=== PATIENT | female | born 1945 | race Caucasian/White ===

== ENCOUNTER 2019-03-04 08:39 | Day surgery (SDC) | payer MEDICARE ==
[~2019-03-04] VITALS: Ht 160 cm; Wt 63.0 kg
--- NOTE | ~2019-03-04 | OP ---
PATIENT NAME: RASHAUN GARCIA MEDICAL RECORD: [id number] :45 LOCATION:[facility] ADMISSION DATE: SURGEON: MERRICK GARCIA MD DATE OF OPERATION: 03/04/2019 PREOPERATIVE DIAGNOSIS: Acute appendicitis. POSTOPERATIVE DIAGNOSIS: Acute appendicitis. Pathology pending. PROCEDURE: Laparoscopic appendectomy. SURGEON: Merrick Garcia MD [employer] FORMER: None. BLOOD LOSS: Minimal. ANESTHESIA: General. COMPLICATIONS: None. The risks, possible complications, and alternatives to the procedure were explained to the patient. She elects to proceed. The patient had been having no right lower quadrant abdominal pain. She does have a thickened appendix on CT scan. She also has colonoscopic images that reveal some what appears to be a colitis around the appendiceal orifice. We specifically discussed the possibility that the appendix would be normal and in that event, I would still remove the normal appendix in order to avoid diagnostic confusion in the future should the patient develop abdominal pain. OPERATIVE COURSE: The patient was conveyed to the operating room electively on 03/04/2019. General anesthesia was induced by the anesthesia staff. The patient was positioned supine. The abdomen was sterilely prepped and draped. A small skin incision was accomplished in the left upper quadrant. A Veress needle was inserted through the skin incision into the peritoneal cavity. CO2 insufflation was begun. Once a sufficient pneumoperitoneum had been achieved, a 5-mm trocar was inserted through an incision in the left upper quadrant. Under direct internal vision utilizing television camera, a 5-mm trocar was inserted in the left lower quadrant. A 12-mm trocar was inserted through an incision at the umbilicus. During insertion of the Veress needle and all trocars, there appeared to have been no injury to the bowels, any intraperitoneal or retroperitoneal structures. A right-sided pelvic hernia was noted. There is no evidence of incarceration. The hernial had a wide mouth. I do not believe that is ever going to cause her any symptoms. Right inguinal mesh was identified. It appeared to be nicely placed without any recurrence of a hernia. The appendix was identified. It was grasped and retracted anteriorly. A window was created in the mesoappendix. I took down the mesoappendix with the laparoscopic EnSeal device. I then stapled across the tip of the cecum with an OPERATIVE REPORT [id number] RASHAUN GARCIA Hallie Endo-DANETTE type stapler utilizing blue loads. The appendix was placed within a bag retrieval device and was withdrawn through the umbilical fascia defect. The 12-mm trocar was placed and the abdomen reinsufflated. I irrigated and aspirated the right lower quadrant. There was no bleeding even at low pressure of 8. The Axel-Sandy suture closure device and 0 Vicryl sutures were used to close the umbilical fascia defect. The other trocars were removed. The other trocar sites were closed with interrupted intracuticular 3-0 Vicryl sutures. The skin at the umbilicus was closed with interrupted 4-0 Vicryl Rapide sutures. Benzoin and Steri-Strips were applied. The patient was then extubated and conveyed to post-anesthesia care unit where she was in stable condition. She will be dismissed home on a narcotic analgesic as well as Colace. I will see her in the office in 2-3 weeks. TRANSINT:[id number] Voice Confirmation ID: [id number] DOCUMENT ID: [id number] MERRICK GARCIA MD CC: ADRYAN FERNANDEZ MD and JANINE VIVAS [id number] DICTATION DATE: 03/04/19 1512 [employer] OFFICER: 03/04/19 2320 [facility] 03/04/19 [facility] [address] [place] [address]
[~2019-03-04 08:39] MED LIST: TRIAMTERENE-HC1 EAC3 PO
[2019-03-04 09:17] LABS: ANION GAP 7.7 mmol/L (8-16); CALCIUM 9.4 mg/dL (8.5-10.1); CARBON DIOXIDE 36.3 mmol/L (21.0-32.0); CREATININE - SERUM 0.9 mg/dL (0.6-1.3); HEMOGLOBIN 15.1 g/dL (12-16); MCH 30.5 pg (26.0-34.0); MCHC 32.8 g/dL (31.0-37.0); MCV 92.9 fL (80.0-100.0); MEAN PLATELET VOLUME 10.1 fL (7.4-10.4); RBC 4.95 10x6/uL (4.00-5.40); RDW 14.1 % (11.5-14.5)
[2019-03-04 09:44] VITALS: BP 140/86; Ht 160 cm; Wt 63.0 kg
== END 2019-03-04 16:20 | disposition home or self-care (01) ==
LOC: D.OPS 08:39 → D.PAN 08:45 → D.OPS 16:20
PROVIDERS: Anesthesiology; ATTEND Surgery
DX: K35.80 Unspecified acute appendicitis (principal); K45.8 Other specified abdominal hernia without obstruction or gangrene